=== PATIENT | female | born 1960 | race Caucasian/White ===

== ENCOUNTER 2018-10-05 12:25 | Observation (INO) ==
--- NOTE | 2018-10-05 08:25 | Discharge Summary ---
<Chandrika Gomez - Last Filed: 10/05/18 14:19> Date of Encounter: 10/05/18 - Hospital Course Hospital course: Ms. Pulido is a 58 year old female - Time Spent with Patient Total time spent providing and/or coordinating discharge services: - Discharge Medications Prescriptions: New Aspirin Enteric Coated [Aspirin EC] 325 mg PO BID 10 Days #20 tablet. Continue Amitriptyline HCl 200 mg PO HS ALPRAZolam [Xanax 1 MG Tablet] 1 mg PO BID PRN PRN Reason: Anxiety Discontinued Naproxen Sodium [Aleve] 220 mg PO Q8H PRN PRN Reason: Headache Home Medications: ALPRAZolam [Xanax 1 MG Tablet] 1 mg PO BID PRN 10/05/18 [History] Amitriptyline HCl 200 mg PO HS 10/05/18 [History] Aspirin Enteric Coated [Aspirin EC] 325 mg PO BID 10 Days #20 tablet. 10/05/18 [Rx] Allergies/Adverse Reactions: Allergy/AdvReac Type Severity Reaction Status Date / Time codeine Allergy Hives Verified 10/05/18 13:04 oxycodone [From OxyContin] Allergy Hives Verified 10/05/18 13:04 Primary care physician: Evaristo Valenzuela Jr, MD - Patient Status Disposition: Home Health Service Condition: Fair - Discharge Instructions Follow Up With: Chandrika Gomez PAC [Physician Wastewater Treatment Operator] - Donn Espinosa MD [Partnered Physician] - 11/04/18 5:15 pm Evaristo Valenzuela Jr, MD [Primary Care Provider] - <Chandrika Camejo - Last Filed: 10/12/18 16:46> Date of Encounter: 10/12/18 Time of Encounter: 16:40 - Discharge Diagnosis (1) Status post total left knee replacement Priority: Primary Status: Acute (2) Osteoarthritis of left knee Priority: Primary Status: Chronic Qualifiers: Osteoarthritis type: unspecified Qualified Code(s): M17.12 - Unilateral primary osteoarthritis, left knee (3) Obesity (BMI 30-39.9) Priority: Secondary Status: Chronic (4) Recently quit using tobacco Priority: Secondary Status: Chronic - Hospital Course Hospital course: Ms. Pulido is a 58 year old female status post left TKR 10/05/18 with medical history of OA, obesity, recently quit smoking. She participated in therapy and had an uneventful hospital course. She was evaluated by Dr. Meza on day of discharge (10/10/18) and deemed stable for discharge at that time. - Time Spent with Patient Total time spent providing and/or coordinating discharge services: Date of admission: 10/05/18 Primary care physician: Evaristo Valenzuela Jr, MD Discharging clinician: Donn Espinosa Anticipated date of discharge: 10/10/18 - Impressions Knee X-Ray 10/05/18 01:00 IMPRESSION: Status post left total knee arthroplasty. No evidence of hardware complication. No acute osseous abnormalities. D/ / 10/05/2018 16:09:41 Gm Ruiz MD / [facility] Interpreting Provider: Gm Ruiz MD - Patient Status Functional capacity at discharge: uses cane/walker Overall status at discharge: patient is back to baseline - Diet and Activity Activity: ambulate only with your walker, as per physical therapy Diet: advance to your usual diet
[~2018-10-05 12:25] MED LIST: Total Joint Mixture (50 ml) IR ONE
--- NOTE | 2018-10-05 12:31 | Physician Discharge Referral ---
Home Health/Hosp Referral Info Transfer to: Home Health Attending Provider: Jesús - Diagnosis (1) Status post total left knee replacement Priority: Primary Status: Acute (2) Osteoarthritis of left knee Priority: Primary Status: Chronic (3) Obesity (BMI 30-39.9) Priority: Secondary Status: Chronic (4) Recently quit using tobacco Priority: Secondary Status: Chronic - Respiratory Orders None Smoking Cessation: Smoking cessation has been advised. For more information, call the [place] Tobacco Quit Line at 8-569-RLED-NOW. - Diet/Nutrition Diet/Nutrition Orders: Regular - Activity Activity Orders: Ambulate, Chair, Walker - Services Needed Following services are medically necessary services: Nursing, Home Health Aide, Physical Therapy, Occupational Therapy Home Care Orders: Opsite dressing, leave intact until first post-operative visit. If dressing becomes >50% saturated, contact office, remove dressing and place appropriate dressing in its place. Do not allow for dressing to get wet. Zipline/[place] in place, plan to remove at post-operative day #14-16. Total Joint Precautions x 6 weeks Apply cold therapy wrap 3-6x/day for 20 minutes at a time. Encourage ambulation throughout the day Use Incentive spirometer 10x/hour. Elevate affected extremity above heart as tolerated. Brace: Wear knee immobilizer at night x 2 weeks. - Transfer Medications Home Medications: ALPRAZolam [Xanax 1 MG Tablet] 1 mg PO BID PRN 10/05/18 [History] Amitriptyline HCl 200 mg PO HS 10/05/18 [History] Aspirin Enteric Coated [Aspirin EC] 325 mg PO BID 10 Days #20 tablet. 10/05/18 [Rx] Naproxen Sodium [Aleve] 220 mg PO Q8H PRN 10/05/18 [History] Allergies/Adverse Reactions: Allergy/AdvReac Type Severity Reaction Status Date / Time codeine Allergy Hives Verified 10/05/18 13:04 oxycodone [From OxyContin] Allergy Hives Verified 10/05/18 13:04 Certification: Further, I certify that my clinical findings support that this patient is homebound (i.e. absences from home require considerable and taxing effort and are for medical reasons or scientology services or infrequently or short duration when for other reasons) because: Homebound Reason: Post-surgery restriction and or conditions limit ability to leave home Attestation: My signature below is to certify that this patient is under my care and that I, or nurse practitioner, or a physician employment legal assistant working with me, has a [id number] encounter with this patient.
[2018-10-05] MEDS ORDERED: Famotidine 20 MG/2 ML VIAL IVP ONE (12:39)
[2018-10-05] MEDS ORDERED: Gabapentin 300 MG CAPSULE PO ONE (12:40)
[2018-10-05] MEDS ORDERED: Celecoxib 200 MG CAPSULE PO ONE (12:40)
[2018-10-05] MEDS ORDERED: CeFAZolin Syr 2,000MG/20 ML 2,000 MG/20 ML SYRINGE IVPB ONE (12:45)
[2018-10-05] MEDS ORDERED: Albuterol 2.5 MG/3 ML NEBULIZER IH ONE (12:45)
[2018-10-05] MEDS ORDERED: Ringers Solution, Lactated 1,000 ML IVC SCH (12:45)
[2018-10-05] MEDS ORDERED: ROPIVACAINE HCL/PF 0.5% 30 ML VIAL ONE (12:50)
--- NOTE | 2018-10-05 12:51 | History & Physical Report ---
Date of Encounter: 10/05/18 Time of Encounter: 12:51 24 Hour HP Update - Instructions Instructions: If the History and Physical is less than 30 days old and was completed prior to A.M. admission and or procedure and has NOT been updated on calendar day of procedure please complete this update prior to performing procedure. - Update Patient reports changes in Medical Condition: No Changes in examination, assessment, or condition: No Changes in Medication: No Preop tests/diagnostics Reviewed: Yes Surgery Remains Indicated: Yes Consent for Planned Operative Procedure(s) Verified: Yes - Pre-Operative Checklist Preoperative Checklist Indicated: No Prophylactic Antibiotic Ordered: Yes Is VTE Prophylaxis Indicated?: Yes
[2018-10-05] MEDS ORDERED: *HR* Midazolam HCl 2 MG/2 ML VIAL ONE ×2 (12:54→13:29)
[2018-10-05] MEDS ORDERED: *HR* FentaNYL (PF) 100 MCG/2 ML VIAL ONE (12:54)
--- NOTE | 2018-10-05 12:55 | Anesthesia Evaluation PreOp ---
Date of Encounter: 10/05/18 Time of Encounter: 13:00 - Past History Planned Operation: Left TKA Cardiac History: Denies any Significant Hx Pulmonary History: Former smoker BLUEPRINT DEVELOPER History: Denies Any Significant HX Other Medical History: Other (Anxiety) Anesthesia History: No Prior Anesthetic Complications : No Alcohol Use: occasionally Drug use: none Medications and Allergies Cyclobenzaprine [Flexeril] 10 mg PO TID #30 tablet 02/28/16 [Rx] Ibuprofen [Motrin] 600 mg PO TID PRN #30 tab 02/28/16 [Rx] Allergy/AdvReac Type Severity Reaction Status Date / Time codeine Allergy Hives Verified 02/28/16 19:56 oxycodone [From OxyContin] Allergy Hives Verified 02/28/16 19:56 - Meds/Allergy Pre-op Review Medications Reviewed: Yes Allergies Reviewed: Yes Beta Blockers on Current Med List: No Anesthesia Results - Labs Laboratory Tests 09/29/18 09/29/18 09/29/18 11:40 11:40 11:40 Hgb 14.3 Hct 43.5 Plt Count 253 PT 10.2 INR 0.9 APTT 33.5 Sodium 137 Potassium 4.0 BUN 16 Creatinine 0.95 Anesthesia Exam O2 Sat Height 1.68 m Weight 95.708 kg O2 Sat by Pulse Oximetry 99 Vital Signs Temp Pulse Resp BP Pulse Ox 98.6 F 100 18 133/98 99 10/05/18 12:41 10/05/18 12:41 10/05/18 12:41 10/05/18 12:41 10/05/18 12:41 Height: 5'6 Weight: 211 lbs NPO (# of Hours): MN Pain Scale: 0 - HEENT Pupil (Motor): Pupils equal, EOMI Mallampati: II Teeth: Normal Oral Opening: Greater than 3 - BLUEPRINT DEVELOPER LOC: Oriented BLUEPRINT DEVELOPER Motor: Normal RUE, Normal LUE, Normal RLE, Normal LLE, Normal Face BLUEPRINT DEVELOPER Sensory: Normal: RUE, LUE, RLE, LLE, Face - Cardiac Rhythm: Regular Murmur: None JVD: No Carotid Bruit: No - Pulmonary Breath Sounds: bilateral Clear Respiratory Effort: Symmetrical Anesthesia Assess/Plan ASA Score: 2 Level of consciousness: Cooperative, Oriented Anesthetic Plan: Regional Nerve Block, Spinal Regional Nerve Block Plan: Adductor canal Autologous Blood: No Monitoring Plan: Standard Monitors Recovery Plan: PACU (Discussed SAB with Adductor Canal Block, possible GA, agrees to proceed)
[2018-10-05] MEDS ORDERED: Ethanol\\Acetic Acid\\Na Ace\\Ben 1,000 ML IRRIG.SOLN IR ONE (13:34)
[2018-10-05] MEDS ORDERED: KETAMINE HCL 50 MG/ML SYRINGE IV ONE (13:44)
--- NOTE | 2018-10-05 13:49 | Anesthesia Procedures ---
Date of Encounter: 10/05/18 Time of Encounter: 13:40 Procedures: Anesthesia - Epidural/Spinal Patient ID/Chart reviewed: Yes Consent Obtained: Yes Supplemental Oxygen: Nasal Cannula Supplemental Oxygen Rate (L/min): 2 Sedation: Versed (mg): 3 Sedation: Fentanyl (mcg): 100 Site Prep: Aseptic Technique, Sterile prep and drape, 0.5% Chlorhexidine/Alcohol Patient position: upright Local Anesthetic: Lidocaine 1% Amount of Local Anesthetic used: 3 Interspace Used: L4-L5 Blood: No CSF: Yes Paresthesia: No Spinal Needle Gauge: 24 Spinal Dose: bupivicaine 0.5% 3ml Vitals + FHT's: Vital Signs - Last 8 Hours Temp Pulse Resp BP Pulse Ox 10/05/18 13:44 98.6 F 100 18 133/98 99 10/05/18 13:13 18 99 10/05/18 12:41 98.6 F 100 18 133/98 99 Intake and Output 10/04/18 10/05/18 10/05/18 23:59 07:59 15:59 Other: Weight 95.708 kg Patient Weight 10/05/18 23:59 Weight 95.708 kg - Nerve Block Procedure Date: 10/05/18 Time: 13:40 Allergies/Adv Reactions: codeine, oxycodone Pre-op Diagnosis: left knee arthroplasty Surgical Procedure: left knee arthrtitis Checklist: Correct Patient Identifier, Correct procedure, History checked Correct side: Left Blood Thinner: No Monitor Applied: EKG, BP, Pulse Oximetry Supplemental Oxygen via Nasal Cannula (L/min): 2 Sedation: Versed (mg): 3 Sedation: Fentanyl (mcg): 100 Indication: Post Op Analgesia Pre-op Neuro Deficits: No Block Type: Other (adductor canal ) Catheter placed: No Sterile Technique: Yes Ultrasound used: Yes Anatomy identified: Yes Visual spread of Local: Yes Neuro Stimulation: No Blood on Needle Aspiration: No Smooth Injection of Local: Yes Pain with Injection of Local: No Prep: Chlorhexadine Needle: 21 x 100 mm Stimuplex Local: Ropivacaine (0.5% 20ml ) Volume (cc): 20 Number of Attempts: 1 Complications: None/effective block Vitals: Vital Signs - Last 8 Hours Temp Pulse Resp BP Pulse Ox 10/05/18 13:44 98.6 F 100 18 133/98 99 10/05/18 13:13 18 99 10/05/18 12:41 98.6 F 100 18 133/98 99 Intake and Output 10/04/18 10/05/18 10/05/18 23:59 07:59 15:59 Other: Weight 95.708 kg Patient Weight 10/05/18 23:59 Weight 95.708 kg
[2018-10-05] MEDS ORDERED: Ondansetron 4 MG/2 ML VIAL ONE (13:56)
[2018-10-05] MEDS ORDERED: Dexamethasone 4 MG/ML VIAL ONE (13:56)
[2018-10-05] MEDS ORDERED: Tranexamic Acid 1,000 MG/10 ML VIAL ONE (14:00)
[2018-10-05] MEDS ORDERED: *HR* PHENYLEPHRINE 1,000 MCG/10 ML SYRINGE IVP ONE (14:05)
[2018-10-05] MEDS ORDERED: *HR* Propofol 200 MG/20 ML VIAL IVP ONE (14:49)
--- NOTE | 2018-10-05 14:52 | Orthopedic Operative Note ---
Date of procedure: 10/05/18 Pre-op diagnosis: Left knee arthritis Post-op diagnosis: same Procedure: Procedure: Left robotic-assisted Total knee replacement Estimated blood loss: 200 cc Hardware: Metal and polyethylene replacement. Henniker Femur: 4 Tibia:4 TS insert: 9 Patella: 36 Exam Under anesthesia: 4 degrees hyperextension 4 degree valgus as calculated by the robot full flexion and no instability Procedural Notes: Grade 3 arthritic changes all 3 compartments. Operative procedure: The patient was brought to the operating room and placed on the operating room table. After general anesthesia was administered the operative knee was examined. Findings were noted in the exam under anesthesia. The operative extremity was prepped and draped in sterile surgical fashion. The patient received IV antibiotics prior to skin incision. A standard midline inc ision was made centered over the patella. The incision was made through the skin and subcutaneous tissue. A medial parapatellar tendon approach was performed. Care was taken to preserve tissue along the medial aspect of the patella. And to protect the patella tendon. The deep MCL was released off the medial tibia. The infra patella fat pad was excised. The patella was everted and cut was made at the level of the insertion of the quadriceps and patella tendon. The patella was sized the guide was seated and the lug holes are drilled. Knee was brought into flexion. Patient noted to have grade 3 arthritic changes all 3 compartments. Steinmann pins were placed in the tibia and the femur for the tibial and femoral arrays respectively. Checkpoints were also placed in the tibia and the femur for calculation purposes. The knee including the femur and the tibial registered. Osteophytes, ACL and PCL were excised at this point. Extension and flexion were assessed with a valgus stress components were adjusted on the computer to balance the knee. Femoral cuts were made first with robotic assistance, these included the anterior cut posterior cuts chamfer cuts. Tibial cut was then performed with robotic assistance as well. Bone fragments were removed, as well as the medial and lateral meniscus. The size 4 femoral guide was seated box cut was made lug holes are drilled. The size 4 tibial tray was seated and prepared with the fin cutter. Trial reduction with the 9 TS Marli revealed extension of 0 degree and 1 degree varus full flexion. No varus valgus instability. Trial reduction revealed excellent patella tracking. All trial components were removed all bony surfaces were irrigated. The Tibia was seated followed by the femur, The selected Marli size was seated and secured patella. Patient had similar findings for motion and stability. The knee was closed by the PA. The knee was then irrigated out with 2 L of pulse irrigation. The extensor mechanism was closed with #2 FiberWire suture and #2 PDS suture. The subcutaneous tissue was then irrigated and closed deep with #1 PDS suture superficially with 0 PDS suture and skin was closed with zip tie The patient was then placed in a sterile dressing and a postoperative brace extubated and transferred to recovery room in stable condition. Anesthesia: spinal Surgeon: Donn Espinosa Was there an human resources office assistant present: No Estimated blood loss (cc): 200 Condition: stable Disposition: PACU
[2018-10-05 15:50] LABS: Hemoglobin 11.5 g/dL (11.5-15.4)
[2018-10-05] MEDS ORDERED: *HR* HYDROcodone/Acet 5/325 mg TABLET PO PRN (16:36)
[2018-10-05] MEDS ORDERED: MOM Conc 10 ML UD.LIQ PO PRN (16:36)
[2018-10-05] MEDS ORDERED: Ondansetron 4 MG/2 ML VIAL IVP PRN (16:36)
[2018-10-05] MEDS ORDERED: Sennosides 8.6 MG TABLET PO PRN (16:36)
[2018-10-05] MEDS ORDERED: *HR* Promethazine 25 MG/ML VIAL IVP PRN (16:36)
--- NOTE | 2018-10-05 17:01 | Anesthesia Evaluation Post Op ---
Date of Encounter: 10/05/18 Time of Encounter: 16:45 - Vital Signs Vital Signs: Vital Signs/O2 Sat/Glucose, Most Current Temp Pulse Resp BP Pulse Ox 10/05/18 16:06 98.2 F 80 13 99/65 99 10/05/18 15:56 82 12 92/64 94 10/05/18 15:46 98.2 F 82 13 95/67 97 10/05/18 15:36 81 12 90/64 99 10/05/18 15:26 83 13 92/61 95 10/05/18 15:16 97.5 F L 88 14 93/60 100 10/05/18 13:44 98.6 F 100 18 133/98 99 10/05/18 13:41 74 18 114/85 95 10/05/18 13:24 72 18 141/92 97 10/05/18 13:13 18 99 - Lungs Lungs: Clear Ascult./Percussion - Airway Airway: Non-obstructed - Cardiovascular Regular Rate - Mental Status Mental Status: Alert & Oriented, Answers Appropriately - Pain Pain Scale: 0 - Nausea Vomiting Nausea Vomiting: Not Present - Hydration Hydration: Tolerates oral liquids - Discharge PostOp Status: Transfer Patient to floor
[2018-10-05] MEDS: Ascorbic Acid 500 MG TABLET PO SCH (17:30)
[2018-10-05] MEDS: *HR* HYDROcodone/Acet 10/325 mg TABLET PO PRN ×2 (17:38→23:37)
[2018-10-05] MEDS: traMADol 50 MG TABLET PO PRN (18:28)
[2018-10-05] MEDS: ALPRAZolam 1 MG TABLET PO PRN (20:21)
[2018-10-05] MEDS: *HR* Enoxaparin 30 MG/0.3 ML SYRINGE SQ SCH (20:21)
[2018-10-05] MEDS: Ketorolac 30 MG/ML VIAL IVP PRN (22:16)
[2018-10-05] MEDS: Temazepam 15 MG CAPSULE PO PRN ×2 (22:16→22:43)
[2018-10-05] MEDS: Acetaminophen IV 1,000 MG/100 ML INFUS..BTL IVPB PRN (22:43)
[2018-10-06] MEDS: traMADol 50 MG TABLET PO PRN ×2 (02:24→23:29)
[2018-10-06] MEDS: *HR* HYDROcodone/Acet 10/325 mg TABLET PO PRN ×3 (05:24→19:28)
[2018-10-06] MEDS: *HR* Enoxaparin 30 MG/0.3 ML SYRINGE SQ SCH ×2 (05:24→18:20)
--- NOTE | 2018-10-06 06:42 | Orthopedics Progress Note ---
Date of Encounter: 10/06/18 Time of Encounter: 06:41 Subjective Interval history: Patient was seen this morning doing well without complaints. Afebrile vital signs stable. Operative extremity: Neurovascularly intact Dressing clean dry and intact Calves nontender Assessment and plan: Continue with postoperative care Post op hematocrit 35 Objective Vital signs: Vital Signs Temp Pulse Resp BP Pulse Ox 10/06/18 05:38 97.7 F 97 15 116/79 94 10/05/18 23:36 98.1 F 94 16 142/92 95 10/05/18 19:42 97.7 F 87 17 125/87 96 10/05/18 17:00 98.2 F 81 16 115/77 95 10/05/18 16:30 97.8 F 81 16 110/75 96 10/05/18 16:06 98.2 F 80 13 99/65 99 10/05/18 15:56 82 12 92/64 94 10/05/18 15:46 98.2 F 82 13 95/67 97 10/05/18 15:36 81 12 90/64 99 10/05/18 15:26 83 13 92/61 95 10/05/18 15:16 97.5 F L 88 14 93/60 100 10/05/18 13:44 98.6 F 100 18 133/98 99 10/05/18 13:41 74 18 114/85 95 10/05/18 13:24 72 18 141/92 97 10/05/18 13:13 18 99 10/05/18 12:41 98.6 F 100 18 133/98 99 Intake and Output 10/05/18 10/05/18 10/06/18 15:59 23:59 07:59 Intake Total 100 / 100 Output Total 200 / 200 Balance -200 / -200 100 / 100 Intake: IV Fluids 100 / 100 Ancef 2,000 MG In 0.9 % Sodium 100 / 100 Chloride 100 ML @ 200 mls/hr IVPB Q8HR [facility] Rx#:[id number] Output: Estimated Blood Loss 200 / 200 Other: # Voids 1 Weight 95.708 kg 96 kg Patient Weight 10/06/18 23:59 Weight 96 kg - Labs CBC & BMP: 10/05/18 15:31 Labs: Abnormal lab results Hct 35.0 % (35.3-44.9) L 10/05/18 15:31 Consult Discharge Plan - Plan Referrals: Evaristo Valenzuela Jr, MD [Primary Care Provider] - Prescriptions: Aspirin Enteric Coated [Aspirin EC] 325 mg PO BID 10 Days #20 tablet. Docusate Sodium [Colace] 100 mg PO BID 5 Days #10 capsule HYDROcodone/Acet 5/325 mg [[place] 5-325 mg] 1 tab PO Q6H PRN 5 Days #20 tab PRN Reason: Severe Pain
[2018-10-06 07:07] LABS: Basophils % 0.3 %; Hematocrit 33.9 % (35.3-44.9); Hemoglobin 11.1 g/dL (11.5-15.4); Immature Granulocytes % 0.4 % (0-4); Lymphocytes # 0.7 K/mcL (0.6-4.6); Lymphocytes % 6.9 %; Mean Corpuscular HGB Conc 32.7 g/dL (31.6-35.5); Mean Corpuscular Hemoglobin 29.8 pg (28.0-33.3); Mean Corpuscular Volume 90.9 fL (83.0-100.0); Mean Platelet Volume 9.1 fL (9.4-12.4); Monocytes # 0.6 K/mcL (0.0-1.3); Monocytes % 5.9 %; Neutrophils # 8.7 K/mcL (1.6-8.9); Platelet Count 229 K/mcL (140-400); Red Blood Count 3.73 M/mcL (3.82-4.97); Red Cell Distribution Width 13.4 % (11.5-14.5); Segmented Neutrophils % 86.5 %
[2018-10-06 07:24] LABS: BUN/Creatinine Ratio 17 (6-26); Blood Urea Nitrogen 14 mg/dL (6-20); Calcium 8.9 mg/dL (8.6-10.3); Carbon Dioxide 28 mEq/L (23-29); Chloride 104 mEq/L (98-107); Glucose 118 mg/dL (70-105); Osmolality,Calculated 288 (280-300); Potassium 4.7 mEq/L (3.5-5.1); Sodium 138 mEq/L (136-145); eGFR For Non-African Americans > 60 (> 60)
[2018-10-06] MEDS: Ascorbic Acid 500 MG TABLET PO SCH ×2 (09:07→18:20)
[2018-10-06] MEDS: Multivit/Ca/Min/Fe/FA 1 TAB TABLET PO SCH (09:07)
[2018-10-06] MEDS: Acetaminophen IV 1,000 MG/100 ML INFUS..BTL IVPB PRN (11:36)
[2018-10-06] MEDS: ALPRAZolam 1 MG TABLET PO PRN (15:03)
--- NOTE | 2018-10-06 16:16 | Event Note ---
Date of Encounter: 10/06/18 Time of Encounter: 12:50 PCR - POD#1 s/p - left TKR 10/05/18 Patient seen at bedside, without complaints other than pain. A&O x 3. Per nurse patient had some confusion/slurring of speech earlier this morning but on my exam this has resolved, likely related to pain medication. continue to monitor. Afebrile, vital signs stable. Dressings had bleeding noted to distal end of incision will continue to monitor. no calf tenderness to palpation. good dorsiflexion of foot, sensation intact distally Labs reviewed. H/H - 11.1/33.9 stable, asymptomatic Pain control: inadequate, she just received next dose of medication. receiving norco as she has allergy to oxycodone. will add lidoderm patch if no improvement with this most recent dose of pain medication, then would consider gabapentin if necessary after that Participating in PT. All questions and concerns addressed. Educated on use of incentive spirometer. Encouraged ambulation and proper hydration. Patient educated on post-operative restrictions and post-operative care. Assessment and plan: Continue with postoperative care Discharge plan: PT is recommending ECF but patient is refusing this option. Will see how she progresses with additional therapy sessions this afternoon and tomorrow morning then reassess plans
[2018-10-06] MEDS: Ketorolac 30 MG/ML VIAL IVP PRN (19:32)
[2018-10-06] MEDS: Temazepam 15 MG CAPSULE PO PRN (22:39)
[2018-10-07] MEDS: *HR* HYDROcodone/Acet 10/325 mg TABLET PO PRN ×4 (03:17→23:03)
[2018-10-07] MEDS: *HR* Enoxaparin 30 MG/0.3 ML SYRINGE SQ SCH ×2 (07:01→16:58)
[2018-10-07 07:59] LABS: BUN/Creatinine Ratio 23 (6-26); Blood Urea Nitrogen 19 mg/dL (6-20); Calcium 8.7 mg/dL (8.6-10.3); Carbon Dioxide 29 mEq/L (23-29); Chloride 103 mEq/L (98-107); Glucose 107 mg/dL (70-105); Osmolality,Calculated 289 (280-300); Potassium 4.3 mEq/L (3.5-5.1); Sodium 138 mEq/L (136-145); eGFR For Non-African Americans > 60 (> 60)
[2018-10-07 08:25] LABS: Basophils # 0.1 K/mcL (0.0-0.2); Basophils % 0.8 %; Eosinophils # 0.1 K/mcL (0.0-0.6); Eosinophils % 1.2 %; Hematocrit 27.6 % (35.3-44.9); Immature Granulocytes % 0.5 % (0-4); Lymphocytes # 1.2 K/mcL (0.6-4.6); Lymphocytes % 20.5 %; Mean Corpuscular HGB Conc 32.2 g/dL (31.6-35.5); Mean Corpuscular Hemoglobin 29.7 pg (28.0-33.3); Mean Platelet Volume 8.7 fL (9.4-12.4); Monocytes # 0.5 K/mcL (0.0-1.3); Monocytes % 8.8 %; Platelet Count 188 K/mcL (140-400); Red Cell Distribution Width 13.9 % (11.5-14.5); Segmented Neutrophils % 68.2 %
[2018-10-07 08:28] LABS: Hemoglobin 8.9 g/dL (11.5-15.4)
[2018-10-07] MEDS: Multivit/Ca/Min/Fe/FA 1 TAB TABLET PO SCH (09:23)
[2018-10-07] MEDS: Ascorbic Acid 500 MG TABLET PO SCH ×2 (09:23→16:58)
[2018-10-07] MEDS: Gabapentin 300 MG CAPSULE PO PRN (11:45)
[2018-10-07] MEDS: Ringers Solution, Lactated 1,000 ML IVC SCH ×3 (13:28→13:30)
--- NOTE | 2018-10-07 17:54 | Event Note ---
Date of Encounter: 10/07/18 Time of Encounter: 12:30 PCR - POD#2 s/p - left TKR 10/05/18 Patient seen at bedside, without complaints other than pain. A&O x 3. Afebrile, vital signs stable. Dressings had bleeding noted to distal end of incision yesterday but no worsening today, will continue to monitor. no calf tenderness to palpation. good dorsiflexion of foot, sensation intact distally Labs reviewed. H/H - 8.9/27.6 stable, asymptomatic Pain control: inadequate, she just received next dose of medication. receiving norco as she has allergy to oxycodone. minimal added relief with lidoderm patch. will add gabapentin and muscle relaxer now Participating in PT. All questions and concerns addressed. Educated on use of incentive spirometer. Encouraged ambulation and proper hydration. Patient educated on post-operative restrictions and post-operative care. Assessment and plan: Continue with postoperative care Discharge plan: PT is recommending ECF patient had been refusing this yesterday but she is now agreeable to going to ECF and SW working on placement.
[2018-10-07] MEDS: Ketorolac 30 MG/ML VIAL IVP PRN (20:38)
[2018-10-07] MEDS: traMADol 50 MG TABLET PO PRN (20:38)
[2018-10-08] MEDS: *HR* Enoxaparin 30 MG/0.3 ML SYRINGE SQ SCH ×2 (04:59→17:59)
[2018-10-08] MEDS: *HR* HYDROcodone/Acet 10/325 mg TABLET PO PRN ×3 (04:59→17:59)
[2018-10-08] MEDS: traMADol 50 MG TABLET PO PRN ×3 (07:02→22:14)
[2018-10-08 07:22] LABS: Basophils # 0.1 K/mcL (0.0-0.2); Basophils % 1.4 %; Eosinophils # 0.2 K/mcL (0.0-0.6); Eosinophils % 2.7 %; Hematocrit 30.2 % (35.3-44.9); Hemoglobin 9.4 g/dL (11.5-15.4); Immature Granulocytes % 0.3 % (0-4); Lymphocytes # 1.9 K/mcL (0.6-4.6); Lymphocytes % 29.4 %; Mean Corpuscular HGB Conc 31.1 g/dL (31.6-35.5); Mean Corpuscular Hemoglobin 28.9 pg (28.0-33.3); Mean Corpuscular Volume 92.9 fL (83.0-100.0); Mean Platelet Volume 9.1 fL (9.4-12.4); Monocytes # 0.6 K/mcL (0.0-1.3); Monocytes % 9.8 %; Neutrophils # 3.6 K/mcL (1.6-8.9); Platelet Count 237 K/mcL (140-400); Red Blood Count 3.25 M/mcL (3.82-4.97); Red Cell Distribution Width 14.1 % (11.5-14.5); Segmented Neutrophils % 56.4 %
[2018-10-08 07:31] LABS: BUN/Creatinine Ratio 21 (6-26); Blood Urea Nitrogen 19 mg/dL (6-20); Calcium 9.1 mg/dL (8.6-10.3); Carbon Dioxide 31 mEq/L (23-29); Chloride 103 mEq/L (98-107); Glucose 104 mg/dL (70-105); Osmolality,Calculated 293 (280-300); Potassium 4.3 mEq/L (3.5-5.1); Sodium 140 mEq/L (136-145); eGFR For Non-African Americans > 60 (> 60)
--- NOTE | 2018-10-08 08:04 | Orthopedics Progress Note ---
Date of Encounter: 10/08/18 Time of Encounter: 08:04 Subjective Interval history: Patient was seen this morning doing well without complaints. Afebrile vital signs stable. Operative extremity: Neurovascularly intact Dressing clean dry and intact Calves nontender Assessment and plan: Continue with postoperative care Plan for discharge today Objective Vital signs: Vital Signs Temp Pulse Pulse Resp BP Pulse Ox 10/08/18 06:37 97.6 F 100 15 92/54 100 10/07/18 22:58 98.7 F 101 17 117/75 96 10/07/18 20:58 84 10/07/18 19:15 98.3 F 99 15 88/58 92 10/07/18 14:00 98.1 F 87 16 118/64 96 10/07/18 09:48 97.9 F 84 16 101/57 96 Intake and Output 10/07/18 10/08/18 10/08/18 23:59 07:59 15:59 Intake Total 240 / 240 550 / 550 Balance 240 / 240 550 / 550 Intake: Oral 240 / 240 550 / 550 Other: # Voids 1 Weight 100 kg Patient Weight 10/08/18 23:59 Weight 100 kg - Labs CBC & BMP: 10/08/18 06:41 10/08/18 06:41 Labs: Abnormal lab results RBC 3.25 M/mcL (3.82-4.97) L 10/08/18 06:41 Hgb 9.4 g/dL (11.5-15.4) L 10/08/18 06:41 Hct 30.2 % (35.3-44.9) L 10/08/18 06:41 MCHC 31.1 g/dL (31.6-35.5) L 10/08/18 06:41 MPV 9.1 fL (9.4-12.4) L 10/08/18 06:41 Carbon Dioxide 31 mEq/L (23-29) H 10/08/18 06:41 Consult Discharge Plan - Plan Referrals: Chandrika Gomez PAC [Physician Harvester Operator] - Donn Espinosa MD [Partnered Physician] - 11/04/18 5:15 pm Evaristo Valenzuela Jr, MD [Primary Care Provider] - Prescriptions: Aspirin Enteric Coated [Aspirin EC] 325 mg PO BID 10 Days #20 tablet. Docusate Sodium [Colace] 100 mg PO BID 5 Days #10 capsule HYDROcodone/Acet 5/325 mg [[place] 5-325 mg] 1 tab PO Q6H PRN 5 Days #20 tab PRN Reason: Severe Pain
[2018-10-08] MEDS: Multivit/Ca/Min/Fe/FA 1 TAB TABLET PO SCH (08:06)
[2018-10-08] MEDS: Ascorbic Acid 500 MG TABLET PO SCH ×2 (08:06→15:59)
--- NOTE | 2018-10-08 15:29 | Event Note ---
Date of Encounter: 10/08/18 Time of Encounter: 12:25 PCR - POD#3 s/p - left TKR 10/05/18 Patient seen at bedside, without complaints other than pain but better today. A&O x 3. Afebrile, vital signs stable. Dressings had no further bleeding noted. no calf tenderness to palpation. good dorsiflexion of foot, sensation intact distally Labs reviewed. H/H - 9.4/30.2 stable, asymptomatic Pain control: better today after addition of lidoderm patch, gabapentin and muscle relaxer yesterday Participating in PT. All questions and concerns addressed. Educated on use of incentive spirometer. Encouraged ambulation and proper hydration. Patient educated on post-operative restrictions and post-operative care. Assessment and plan: Continue with postoperative care Discharge plan: ECF, awaiting placement
--- NOTE | 2018-10-08 15:31 | Physician Discharge Referral ---
ExtendedCare Referral Info Transfer To: [facility] Provider in Charge: Dr. Espinosa - Diagnosis (1) Status post total left knee replacement Priority: Primary Status: Acute (2) Osteoarthritis of left knee Priority: Primary Status: Chronic (3) Obesity (BMI 30-39.9) Priority: Secondary Status: Chronic (4) Recently quit using tobacco Priority: Secondary Status: Chronic Expected Duration of Placement: <30 days Prognosis: Good Aware of Diagnosis: Patient Aware of Prognosis: Patient - Transfer Medications Home Medications: ALPRAZolam [Xanax 1 MG Tablet] 1 mg PO BID PRN 10/05/18 [History] Amitriptyline HCl 200 mg PO HS 10/05/18 [History] Aspirin Enteric Coated [Aspirin EC] 325 mg PO BID 10 Days #20 tablet. 10/05/18 [Rx] Docusate Sodium [Colace] 100 mg PO BID 5 Days #10 capsule 10/05/18 [Rx] HYDROcodone/Acet 5/325 mg [[place] 5-325 mg] 1 tab PO Q6H PRN 5 Days #20 tab 10/05/18 [Rx] Naproxen Sodium [Aleve] 220 mg PO Q8H PRN 10/05/18 [History] Allergies/Adverse Reactions: Allergy/AdvReac Type Severity Reaction Status Date / Time codeine Allergy Hives Verified 10/05/18 13:04 oxycodone [From OxyContin] Allergy Hives Verified 10/05/18 13:04 - Respiratory Orders None Smoking Cessation: Smoking cessation has been advised. For more information, call the [place] Tobacco Quit Line at 4-606-DXDT-NOW. - Ancillary Orders May use pressure relief devices daily prn, May go on SUSANNA w/family/respon democrat w/meds at nurse discretion PRN, May consult with Dentist, Auto Damage Adjuster, Medical Records Receptionist PRN - Advance Directives Code Status: Full Code - Mobility Orders Chair, Ambulate - Rehabiliation Orders Rehab Potential: Good Rehab Orders: ROM Exercises, Evaluation for Physical Therapy, Evaluation for Occupational Therapy Other: Opsite dressing, leave intact until first post-operative visit. If dressing becomes >50% saturated, contact office, remove dressing and place appropriate dressing in its place. Do not allow for dressing to get wet. Zipline/[place] in place, plan to remove at post-operative day #14-16. Total Joint Precautions x 6 weeks Apply cold therapy wrap 3-6x/day for 20 minutes at a time. Encourage ambulation throughout the day Use Incentive spirometer 10x/hour. Elevate affected extremity above heart as tolerated. Brace: Wear knee immobilizer at night x 2 weeks. - Treatments Skin tear care topically daily PRN per policy - Diet Orders Regular CERTIFICATION: I certify that the transfer of the above named patient to an Extended Care Facility is necessary for the continuing treatment of the diagnosis listed. The above information is true and accurate reflection of patient's current condition. Confidential - Redisclosure prohibited without a patient's written consent.
[2018-10-08] MEDS: Ringers Solution, Lactated 1,000 ML IVC SCH (19:03)
[2018-10-08] MEDS: Temazepam 15 MG CAPSULE PO PRN (22:14)
[2018-10-09] MEDS: *HR* HYDROcodone/Acet 10/325 mg TABLET PO PRN ×3 (04:14→17:49)
[2018-10-09] MEDS: *HR* Enoxaparin 30 MG/0.3 ML SYRINGE SQ SCH ×2 (04:14→17:51)
[2018-10-09] MEDS: Ringers Solution, Lactated 1,000 ML IVC SCH ×2 (05:09→21:22)
--- NOTE | 2018-10-09 06:22 | Orthopedics Progress Note ---
Date of Encounter: 10/09/18 Time of Encounter: 06:22 Subjective Interval history: Patient was seen this morning doing well without complaints. Afebrile vital signs stable. Operative extremity: Neurovascularly intact Dressing clean dry and intact Calves nontender Assessment and plan: Continue with postoperative care Awaiting placement Plan for discharge today Objective Vital signs: Vital Signs Temp Pulse Resp BP Pulse Ox 10/09/18 04:23 97.6 F 98 17 108/62 95 10/09/18 00:55 98.4 F 111 16 110/72 94 10/08/18 22:14 94 10/08/18 19:46 99.5 F 99 17 129/82 94 10/08/18 16:18 98.3 F 100 15 116/63 95 10/08/18 11:21 97.4 F L 100 16 105/71 93 10/08/18 06:37 97.6 F 100 15 92/54 100 Intake and Output 10/08/18 10/08/18 10/09/18 15:59 23:59 07:59 Intake Total 440 / 440 200 / 200 Balance 440 / 440 200 / 200 Intake: Oral 440 / 440 200 / 200 Other: Meal Lunch Percent of Meal Consumed 100% # Voids 1 1 Weight 101 kg Patient Weight 10/09/18 23:59 Weight 101 kg - Labs CBC & BMP: 10/08/18 06:41 10/08/18 06:41 Labs: Abnormal lab results RBC 3.25 M/mcL (3.82-4.97) L 10/08/18 06:41 Hgb 9.4 g/dL (11.5-15.4) L 10/08/18 06:41 Hct 30.2 % (35.3-44.9) L 10/08/18 06:41 MCHC 31.1 g/dL (31.6-35.5) L 10/08/18 06:41 MPV 9.1 fL (9.4-12.4) L 10/08/18 06:41 Carbon Dioxide 31 mEq/L (23-29) H 10/08/18 06:41 Consult Discharge Plan - Plan Referrals: Chandrika Gomez, PAC [Physician Customer Engineer] - Donn Espinosa MD [Partnered Physician] - 11/04/18 5:15 pm Evaristo Valenzuela Jr, MD [Primary Care Provider] -
[2018-10-09] MEDS: Ascorbic Acid 500 MG TABLET PO SCH ×2 (10:24→17:50)
[2018-10-09] MEDS: Multivit/Ca/Min/Fe/FA 1 TAB TABLET PO SCH (10:25)
[2018-10-09] MEDS: ALPRAZolam 1 MG TABLET PO PRN (10:25)
--- NOTE | 2018-10-09 13:20 | Event Note ---
Date of Encounter: 10/09/18 Time of Encounter: 12:30 PCR - POD#4 s/p - left TKR 10/05/18 Patient seen at bedside, with no concerns at this time A&O x 3. Afebrile, vital signs stable. Dressings had no further bleeding noted. dressing to be changed today. no calf tenderness to palpation. good dorsiflexion of foot, sensation intact distally Pain control: adequate Participating in PT. All questions and concerns addressed. Educated on use of incentive spirometer. Encouraged ambulation and proper hydration. Patient educated on post-operative restrictions and post-operative care. Assessment and plan: Continue with postoperative care Discharge plan: ECF, [facility], awaiting insurance auth
[2018-10-09] MEDS: traMADol 50 MG TABLET PO PRN (21:22)
[2018-10-09] MEDS: Temazepam 15 MG CAPSULE PO PRN (21:22)
[2018-10-10] MEDS: *HR* HYDROcodone/Acet 10/325 mg TABLET PO PRN ×2 (04:46→12:02)
[2018-10-10] MEDS: *HR* Enoxaparin 30 MG/0.3 ML SYRINGE SQ SCH (04:46)
[2018-10-10] MEDS: Ringers Solution, Lactated 1,000 ML IVC SCH (05:21)
[2018-10-10] MEDS: Ascorbic Acid 500 MG TABLET PO SCH (09:39)
[2018-10-10] MEDS: Gabapentin 300 MG CAPSULE PO PRN (09:39)
[2018-10-10] MEDS: ALPRAZolam 1 MG TABLET PO PRN (09:39)
[2018-10-10] MEDS: Multivit/Ca/Min/Fe/FA 1 TAB TABLET PO SCH (09:39)
[2018-10-10 11:47] VITALS: BP 98/66
== END 2018-10-10 16:26 | disposition home health service (06) ==
LOC: SAMDAY 12:25 → 3NENU 12:25
PROVIDERS: ADMIT Orthopaedic Surgery; ATTEND Orthopaedic Surgery